=== PATIENT | male | born 1930 | race Caucasian/White ===

== ENCOUNTER 2018-11-06 10:57 | Inpatient (IN) | payer MEDICARE ==
[~2018-11-06] VITALS: Ht 182.9 cm; Wt 85.3 kg
[~2018-11-06 10:57] MED LIST: ACET325T21 PO; ASPI-630 PO; CIPR250T30 PO; CITA10TA8 PO; FLUD0.1T PO; GUAI-66 PO; INSU100V13 SQ; INSU200I SQ; LACT1CAP19 PO; LIDO113G2 TP; LOPE2CAP PO; MAGN296S9 PO; METF10007 PO; RANI150C PO; SENN-161 PO; SILV20CR14 TP; TAMS0.4C97 PO; TRAM50TA PO
[2018-11-06] MEDS ORDERED: IV NORMAL SALINE 1000ML BAG 1,000 ML IV SCH ×2 (11:08→13:15)
[2018-11-06] MEDS ORDERED: IV NORMAL SALINE 1000ML BAG 1,000 ML IV ONE ×2 (11:15→13:00)
[2018-11-06] MEDS ORDERED: IPRATRPIUM/ALBUTEROL 0.5/2.5MG 3 ML NEBU. NEB ONE (11:15)
[2018-11-06 11:23] LABS: BASE EXCESS ABG -5 mmol/L (-3-3); HCO3 ABG 17 mmol/L (21-28); PCO2 ABG 23 mmHg (35-46); PO2 ABG 74 mmHg (65-108); SAT O2 ABG 95 % (92-99)
[2018-11-06 11:26] LABS: BASO % 0 % (0-3); EOS % 0 % (0-3); HEMATOCRIT 35.9 % (39.0-53.0); LYMPH # 0.5 x10^3/uL (1.0-4.8); LYMPH % 2 % (24-48); MEAN CORPUSCULAR HEMOGLOBIN 35 pg (25-35); MEAN CORPUSCULAR HGB CONC 33 g/dL (31-37); MEAN CORPUSCULAR VOLUME 105 fL (79-100); MONO # 0.3 x10^3/uL (0.0-1.1); MONO % 1 % (0-9); NEUT # 30.5 x10^3/uL (1.8-7.7); NEUT % 97 % (31-73); PLATELET COUNT 185 x10^3/uL (140-400); RED BLOOD COUNT 3.42 x10^6/uL (4.30-5.70); RED CELL DISTRIBUTION WIDTH 15.3 % (11.5-14.5); WHITE BLOOD COUNT 31.4 x10^3/uL (4.0-11.0)
--- NOTE | 2018-11-06 11:28 | EKG ---
[facility] [address] [place] [address] Test Date: 2018-11-06 Test Time: 11:01:24 Pat Name: GONZALES SUGGS Department: Room: Gender: M Director Of [employer]: : 1930 Requested By: EDEL ANGUOL Order Number: [id number] Reading MD: Measurements Intervals [place] Rate: 130 P: -116 ND: 126 QRS: 113 QRSD: 124 T: 22 QT: 306 QTc: 456 Interpretive Statements SINUS TACHYCARDIA INDETERMINATE AXIS LOW LIMB LEAD VOLTAGE RIGHT BUNDLE BRANCH BLOCK RVH WITH REPOLARIZATION ABNORMALITY ABNORMAL ECG No previous ECG available for comparison
[2018-11-06 11:29] LABS: FIO2 ABG 36
[2018-11-06 11:39] LABS: PROTHROMBIN TIME PATIENT 13.3 SEC (11.7-14.0)
[2018-11-06 11:41] LABS: CALCIUM 10.1 mg/dL (8.5-10.1); CREATININE 3.7 mg/dL (0.7-1.3); GFR 15.7
[2018-11-06 11:54] LABS: ALBUMIN 2.5 g/dL (3.4-5.0); ALBUMIN/GLOBULIN RATIO 0.6 (1.0-1.7); MAGNESIUM 1.7 mg/dL (1.8-2.4); TOTAL BILIRUBIN 0.6 mg/dL (0.2-1.0); TOTAL PROTEIN 6.6 g/dL (6.4-8.2)
--- NOTE | 2018-11-06 11:54 | RAD ---
Indication:Sepsis. TECHNIQUE:Portable AP chest X-ray COMPARISON: None FINDINGS: Patient is slightly rotated to the right side. Heart is normal in size. Diffuse bilateral interstitial opacities are seen. No focal consolidation. No pneumothorax or pleural effusion. Visualized bony thorax within normal limits. IMPRESSION: Mild bilateral interstitial opacities, nonspecific may be secondary to interstitial pulmonary edema, atypical/viral infection or chronic changes. Electronically signed by: Abelino Whitehead DO (11/06/2018 11:52 AM) [facility]
[2018-11-06] MEDS ORDERED: ACETAMINOPHEN 650 MG SUPP.RECT. PR ONE (12:30)
[2018-11-06] MEDS ORDERED: VANCOMYCIN 1GM IVPB FOR OMNI 250 ML IV ONE (12:30)
[2018-11-06] MEDS ORDERED: PIPERACILLIN/TAZOBACTAM 3.375 GM in IV NORMAL SALINE 50ML 50 ML IV ONE (12:30)
--- NOTE | 2018-11-06 12:33 | PHYS DOC ---
Past Medical History Past Medical History: Anemia, Depression, Hypotension, Other Additional Past Medical Histor: Alzheimers; sepsis Past Surgical History: Other Additional Past Surgical Histo: unknown Alcohol Use: None Drug Use: None Adult General Chief Complaint Chief Complaint: ALTERED MENTAL STATUS HPI HPI Patient is a 88 year old male resident of residential who presents EMS with unresponsiveness. Patient found unresponsive around 10 AM with low blood pressure and fever. Staff reported that he was eating a cookie at 7 AM. Patient had recent hospitalization for end september for abscess of thoracic wall and discharged to residential October 24. Patient is not able to give history. EMS reported the patient had blood pressure of 80s and O2 sat of 80 at room air that improved with starting oxygen and IV fluid. Review of Systems Review of Systems Unable to obtain Current Medications Current Medications Current Medications Medications (Trade) Dose Ordered Sig/Pop Start Time Stop Time Status Last Admin Dose Admin Albuterol/ Ipratropium (Duoneb) 3 ml 1X ONCE 11/06/18 11:15 11/06/18 11:16 DC 11/06/18 11:32 3 ML Sodium Chloride 1,000 ml @ 1,000 mls/hr 1X ONCE 11/06/18 11:15 11/06/18 12:14 DC 11/06/18 11:55 1,000 MLS/HR Allergies Allergies Allergies Coded Allergies Type Severity Reaction Last Updated Verified No Known Drug Allergies 10/17/18 No Physical Exam Physical Exam Constitutional: Unresponsive, breathing with open mouth HENT: Normocephalic, atraumatic. Eyes: Does not open his eyes Neck: Atraumatic Cardiovascular: Sinus tachycardia, no murmur [] Lungs & Thorax: Tachypnea with bilateral coarse breath sounds Abdomen: distended bladder Extremities: Does not move all of the extremities Neurologic: Unresponsive Psychologic: Unable to evaluate Current Patient Data Vital Signs Vital Signs Date Time Temp Pulse Resp B/P (MAP) Pulse Ox O2 Delivery O2 Flow Rate FiO2 11/06/18 11:40 98 Nasal Cannula 4.0 11/06/18 10:57 101.7 130 30 90/45 (60) 101.7 Lab Values Laboratory Tests Test 11/06/18 11:15 11/06/18 11:20 White Blood Count 31.4 x10^3/uL (4.0-11.0) H Red Blood Count 3.42 x10^6/uL (4.30-5.70) L Hemoglobin 12.0 g/dL (13.0-17.5) L Hematocrit 35.9 % (39.0-53.0) L Mean Corpuscular Volume 105 fL (79-100) H Mean Corpuscular Hemoglobin 35 pg (25-35) Mean Corpuscular Hemoglobin Concent 33 g/dL (31-37) Red Cell Distribution Width 15.3 % (11.5-14.5) H Platelet Count 185 x10^3/uL (140-400) Neutrophils (%) (Auto) 97 % (31-73) H Lymphocytes (%) (Auto) 2 % (24-48) L Monocytes (%) (Auto) 1 % (0-9) Eosinophils (%) (Auto) 0 % (0-3) Basophils (%) (Auto) 0 % (0-3) Neutrophils # (Auto) 30.5 x10^3/uL (1.8-7.7) H Lymphocytes # (Auto) 0.5 x10^3/uL (1.0-4.8) L Monocytes # (Auto) 0.3 x10^3/uL (0.0-1.1) Eosinophils # (Auto) 0.0 x10^3/uL (0.0-0.7) Basophils # (Auto) 0.0 x10^3/uL (0.0-0.2) Platelet Estimate Pending Prothrombin Time 13.3 SEC (11.7-14.0) Prothrombin Time INR 1.0 (0.8-1.1) Sodium Level 141 mmol/L (136-145) Potassium Level 5.0 mmol/L (3.5-5.1) Chloride Level 104 mmol/L (98-107) Carbon Dioxide Level 22 mmol/L (21-32) Anion Gap 15 (6-14) H Blood Urea Nitrogen 62 mg/dL (8-26) H Creatinine 3.7 mg/dL (0.7-1.3) H Estimated GFR (Cockcroft-Gault) 15.7 BUN/Creatinine Ratio 17 (6-20) Glucose Level 136 mg/dL (70-99) H Lactic Acid Level 7.6 mmol/L (0.4-2.0) *H Calcium Level 10.1 mg/dL (8.5-10.1) Magnesium Level 1.7 mg/dL (1.8-2.4) L Total Bilirubin 0.6 mg/dL (0.2-1.0) Aspartate Amino Transferase (AST) 19 U/L (15-37) Alanine Aminotransferase (ALT) 11 U/L (16-63) L Alkaline Phosphatase 93 U/L (46-116) Creatine Kinase 143 U/L (39-308) Troponin I Quantitative 0.084 ng/mL (0.000-0.055) UD-Ien-M-Type Natriuretic Peptide 8614 pg/mL (0-449) H Total Protein 6.6 g/dL (6.4-8.2) Albumin 2.5 g/dL (3.4-5.0) L Albumin/Globulin Ratio 0.6 (1.0-1.7) L Lipase 58 U/L (73-393) L O2 Saturation 95 % (92-99) Arterial Blood pH 7.48 (7.35-7.45) H Arterial Blood pCO2 at Patient Temp 23 mmHg (35-46) L Arterial Blood pO2 at Patient Temp 74 mmHg (65-108) Arterial Blood HCO3 17 mmol/L (21-28) L Arterial Blood Base Excess -5 mmol/L (-3-3) L FiO2 36 Laboratory Tests 11/06/18 11:15 Laboratory Tests 11/06/18 11:15 EKG EKG EKG interpreted by me. EKG at 1101 showed sinus tachycardia at rate of 134, low- voltage QRS, right bundle branch block, no acute ST and T-wave elevation. Radiology/Procedures Radiology/Procedures [][facility] [address] [place] [address] IMAGING REPORT Signed PATIENT: GONZALES SUGGS ACCOUNT: [id number] : 1930 LOCATION: ER AGE: 88 SEX: M EXAM STATUS: REG ER ORD. PHYSICIAN: EDEL ANGULO MD REASON: sepsis PROCEDURE: PORTABLE CHEST 1V Indication:Sepsis. TECHNIQUE:Portable AP chest X-ray COMPARISON: None FINDINGS: Patient is slightly rotated to the right side. Heart is normal in size. Diffuse bilateral interstitial opacities are seen. No focal consolidation. No pneumothorax or pleural effusion. Visualized bony thorax within normal limits. IMPRESSION: Mild bilateral interstitial opacities, nonspecific may be secondary to interstitial pulmonary edema, atypical/viral infection or chronic changes. Electronically signed by: Abelino Whitehead DO (11/06/2018 11:52 AM) [facility] DICTATED and SIGNED BY: ABELINO WHITEHEAD DO DATE: 11/06/18 1152 Course & Med Decision Making Course & Med Decision Making Pertinent Labs and Imaging studies reviewed. (See chart for details) Evaluation of patient in ER showed 88-year-old male patient resident of assisted living home brought in after recent hospitalization with hypoxia and hypo tension and altered level of consciousness. Patient was unresponsive in ER and treated with 3 L of IV fluid and antibiotic with improvement of blood pressure more than 100 and increase of O2 sat to 95%. Patient had a big bowel movement and blood pressure dropped to 88 again. Condition was discussed with family members and they requesting DNR. Patient requiring admission for further evaluation and treatment. Discussed with Dr. Zamora who is in agreement with admission. Discussed findings and plan with patient and family, who acknowledge understanding and agreement. Hospitalist presented to ER and evaluated the patient. Dragon Disclaimer Dragon Disclaimer This electronic medical record was generated, in whole or in part, using a voice recognition dictation system. Departure Departure Impression: Primary Impression: Sepsis Additional Impressions: Altered level of consciousness HCAP (healthcare-associated pneumonia) Disposition: ADMITTED INPATIENT Admitting Physician: ADELE Condition: GUARDED Referrals: MATTHEW RIVAS MD (PCP) Critical Care Time Critical care time was 70 minutes exclusive of procedures. Date and Time of Reassessment Date: Nov 06, 2018 Time: 13:00 Fluid Challenge Is the fluid challenge complet: Yes IBW Target Volume Used: Yes BMI > 30: No Vital Signs Vital Signs: Vital Signs Date Time Temp Pulse Resp B/P (MAP) Pulse Ox O2 Delivery O2 Flow Rate FiO2 11/06/18 11:40 98 Nasal Cannula 4.0 11/06/18 10:57 101.7 130 30 90/45 (60) 101.7 Temperature Source: Oral Cardiovascular Pulse Rhythm: Regular Heart: S1 and S2 normal Capillary Refil Capillary Refill: Rt Hand > 3 seconds Peripheral Pulse Pulse Location: Monitor Pulse Strength: Weak (1+) Pulse Assessment Method: NIBP Problem Qualifiers EDEL ANGULO MD Nov 06, 2018 12:33
[2018-11-06] MEDS: MAGNESIUM OXIDE 400 MG TABLET PO SCH (13:00)
[2018-11-06 13:06] LABS: BILIRUBIN,URINE NEGATIVE (NEG); CLARITY,URINE CLOUDY; COLOR,URINE YELLOW; NITRITE,URINE NEGATIVE (NEG); PH,URINE 7.5; PROTEIN,URINE 30 mg/dL (NEG-TRACE); UROBILINOGEN,URINE 0.2 mg/dL (0.2 mg/dL)
[2018-11-06 13:19] LABS: BACTERIA,URINE MANY /HPF (0-FEW); WBC,URINE >40 /HPF (0-4)
[2018-11-06] MEDS ORDERED: SCOPOLAMINE 1.5MG PATCH. TD SCH (14:00)
--- NOTE | 2018-11-06 14:28 | HP ---
ADMIT DATE: 11/06/2018 CHIEF COMPLAINT: Mental status change. HISTORY OF PRESENT ILLNESS: The patient is a pleasant 88-year-old retired gentleman. He used to work in [employer]. Basically, he resides at the [facility] where they do assisted care. He was found unresponsive. The sons who are here with him states he has been declining for some time. He does have Alzheimer's and when they talked to him a couple of days ago, he was somewhat confused. The ambulance brought him to the ER, we have noticed that he has got severe leukocytosis of 31,000. He is azotemic with a BUN of 62. He is in renal failure with creatinine of 3.7. He has a UTI. He is hypotensive, hypoxic. He is extremely dehydrated and the family are here requesting comfort care only. It should be noted that he has already received 3 liters of fluids and some IV antibiotics, but we are going to back off on that at family request. I told the nurse to go ahead and put him on a scopolamine patch on him and give him some p.r.n. morphine. PAST MEDICAL HISTORY: Alzheimer's, anemia, hypotension, previous sepsis, recent thoracic abscess. ALLERGIES: None. FAMILY HISTORY: Diabetes. SOCIAL HISTORY: Does not drink, smoke or take drugs. MEDICATIONS: Reviewed, please refer to the MRAD. REVIEW OF SYSTEMS: Unable to obtain. PHYSICAL EXAMINATION: VITALS: Within normal limits and are stable. GENERAL: No apparent distress. Alert and oriented. HEENT: The oral mucosa is extremely dry. He has got some blood in his mouth. NECK: Supple, no JVD, no thyromegaly was noted. LUNGS: Coarse. HEART: Heart tones are distant, but tachycardic. ABDOMEN: Soft, nontender. Positive bowel sounds no organomegaly, normal bowel sounds. EXTREMITIES: Without any cyanosis, clubbing, or edema. Pedal pulses intact, Homans sign is negative. NEUROLOGIC: Pupils are pinpoint and slightly reactive.. PSYCHIATRIC: Normal affect, normal mood. Stable. SKIN: Very pale and cool. VASCULAR: Good capillary refill, neurovascular bundle appears to be intact. LABORATORY DATA: White count 31,000. He has a UTI with leukocyte esterase. BUN and creatinine are 62 and 3.7. ASSESSMENT AND PLAN: Multiorgan failure and respiratory failure, UTI, sepsis, leukocytosis, azotemia, renal failure and lactic acidosis. Per family request, they want comfort care only. They would like to have morphine and scopolamine patch. We will move him to the medical floor for comfort care only. NAYAN DISLA DO DR: HAN/luis miguel JOB#: [id number] / [id number]
[2018-11-06 14:49] LABS: % LYMPHS 1 % (24-48); % MONOS 2 % (0-10); % SEGS 97 % (35-66); PLT ESTIMATE ADEQUATE (ADEQUATE)
[2018-11-06] MEDS: MORPHINE SULFATE 2 MG/ML VIAL. IV PRN ×3 (14:52→21:35)
[2018-11-06] MEDS ORDERED: ATROPINE 1% OPHTH SOLUTION 5ML BOTTLE. SL PRN (17:45)
[2018-11-06] MEDS ORDERED: GLYCOPYRROLATE 1 MG/5 ML VIAL. IV PRN (17:45)
[2018-11-06 19:00] VITALS: BP 115/63
--- NOTE | 2018-11-06 19:28 | PDOC2 ---
PALLIATIVE CARE Palliative Care Note Palliative Care Consult requested by Dr. Templeton to address plan of care and symptom management. Medical Assessment per medical record; ASSESSMENT AND PLAN: Multiorgan failure and respiratory failure, UTI, sepsis, leukocytosis, azotemia, renal failure and lactic acidosis. Per family request, they want comfort care only. They would like to have morphine and scopolamine patch. We will move him to the medical floor for comfort care only. (Dr. Zamora) Spoke with family; DPOA sons; Maury and his Amanda; [place]; son Praveen unable to be here. Reviewed above medical condition. Decision has been made to focus on comfort. Confirmed DNR/DNI. Patient unresponsive to verbal stimuli. Extremities cool. No Mottling. 89/28 JR 100 RR 28-30 Wet respiratory sounds. Robinul given as ordered. Morphine 2mg x2. Patient appears comfortable. Patient has received the Sacrament of the Sick. He is a member of the [employer] in [place]. 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 Family noticed patient has been declining. Had been with [facility] before being hospitalized recently for removal of cyst on his back. Plan: Comfort Care Monitor closely for symptoms No Labs No x-rays. No antibiotics. YANELY HARMON Nov 06, 2018 19:27
[2018-11-06 23:00] VITALS: BP 115/64
[2018-11-07 03:00] VITALS: BP 125/67
[2018-11-07 07:00] VITALS: BP 134/64
[2018-11-07] MEDS: MAGNESIUM OXIDE 400 MG TABLET PO SCH (08:15)
[2018-11-07] MEDS ORDERED: SCOP1PAT11 TD (08:25)
[2018-11-07] MEDS ORDERED: ATRO2DRO3 SL (08:25)
[2018-11-07] MEDS ORDERED: MORP100S3 SL (08:25)
[2018-11-07] MEDS ORDERED: LORA2ORA7 SL (08:25)
--- NOTE | 2018-11-07 08:27 | SNU/HH DC ---
DISCHARGE ORDERS DISCHARGE INFORMATION: DISCHARGE DATE: Nov 07, 2018 FINAL DIAGNOSIS Problems Medical Problems: (1) Altered level of consciousness Status: Acute (2) HCAP (healthcare-associated pneumonia) Status: Acute (3) Multiple organ failure Status: Acute (4) Sepsis Status: Acute (5) UTI (urinary tract infection) Status: Acute CONDITION ON DISCHARGE: Stable CODE STATUS: Code Status: DNR/DNI HALF-WAY: SNF STAY <30 DAYS: No HOSPICE: HOSPICE: Yes HOSPICE EVAL & TREAT: Yes LTAC: ADMIT TO LTAC: No POST DISCHARGE ORDERS: ACTIVITY ORDERS: Bedrest today DIET AFTER DISCHARGE: NPO FOLLOW-UP: PHYSICIAN FOLLOW-UP: [facility] comfort care only DISCHARGE MEDICATIONS: Home Meds Active Scripts Scopolamine (TRANSDERM-SCOP) 1 Each Patch.td72, 1 PATCH TD Q3DAYS for secretions, #10 PATCH Prov:RENEE MONTESINOS MD 11/07/18 Atropine Sulfate (Atropine Sulfate) 2 Ml Drops, 1 DROP SL PRN Q2HR PRN for SECRETIONS, #30 DROP Prov:RENEE MONTESINOS MD 11/07/18 Lorazepam (LORAZEPAM INTENSOL) 2 Mg/1 Ml Oral.conc, 2 MG SL PRN Q6HRS PRN for ANXIETY / AGITATION, #30 MISC Prov:RENEE MONTESINOS MD 11/07/18 Morphine Sulfate (MORPHINE SULFATE) 100 Mg/5 Ml Solution, 20 MG SL PRN Q3HRS PRN for PAIN, #30 MISC Prov:RENEE MONTESINOS MD 11/07/18 Discontinued Reported Medications Tramadol Hcl (TRAMADOL HCL) 50 Mg Tablet, 50 MG PO PRN Q8HRS PRN for PAIN, TAB 10/17/18 Lidocaine (TOPICAINE) 113 Gm Gel..gram., 113 GM TP PRN Q4HRS PRN for PAIN, EACH 10/17/18 Silver Sulfadiazine (SILVADENE) 20 Gm Cream..g., 1 UCHE TP BID for WOUND ABSCESS, #50 GM 10/17/18 Sennosides/Docusate Sodium (SENNA-DOCUSATE SODIUM TABLET) 1 Each Tablet, 1 EACH PO PRN Q24HRS PRN for CONSTIPATION, TAB 10/17/18 Ranitidine Hcl (RANITIDINE HCL) 150 Mg Capsule, 150 MG PO DAILY for GERD, TAB 10/17/18 Metformin Hcl (METFORMIN HCL) 1,000 Mg Tablet, 1000 MG PO DAILYWBKFT for ANTI- DIABETIC, TAB 0 Refills 10/17/18 Magnesium Citrate (MAGNESIUM CITRATE) 296 Ml Solution, 296 ML PO PRN DAILY PRN for CONSTIPATION, MISC 10/17/18 Loperamide Hcl (LOPERAMIDE) 2 Mg Capsule, 2 MG PO PRN Q8HRS PRN for DIARRHEA, CAP 10/17/18 Insulin Detemir (LEVEMIR) 100 Unit/1 Ml Vial, 20 UNIT SQ HS for DIABETES, VIAL 10/17/18 Insulin Lispro (Humalog Kwikpen) 200 Unit/1 Ml Insuln.pen, 15 UNIT SQ PRN BFRMEAL PRN for DIABETES, EACH 10/17/18 Guaifenesin (KANCHAN-TUSSIN) 100 Mg/5 Ml Liquid, 200 MG PO PRN Q6HRS PRN for COUGH, LIQUID 10/17/18 Fludrocortisone Acetate (FLUDROCORTISONE ACETATE) 0.1 Mg Tablet, 0.1 MG PO DAILY for REPLACEMENT THERAPY, TAB 10/17/18 Tamsulosin Hcl (FLOMAX) 0.4 Mg Cap.er.24h, 0.4 MG PO HS for BPH, TAB 10/17/18 Citalopram Hydrobromide (CELEXA) 10 Mg Tablet, 5 MG PO DAILY for BPH, TAB 10/17/18 Aspirin (ASPIRIN) 81 Mg Tab.chew, 1 TAB PO DAILY for HEART HEALTH, #30 TAB 3 Refills 10/17/18 Acetaminophen (ACETAMINOPHEN) 325 Mg Tablet, 650 MG PO PRN Q6HRS PRN for PAIN, TAB 10/17/18 Discontinued Scripts Lactobacillus Rhamnosus Gg (CULTURELLE) 1 Each Cap.sprink, 1 CAP PO BID for Diarrhea for 7 Days, #14 CAP Prov:JEANNE HENDERSON MD 10/23/18 Ciprofloxacin Hcl (CIPRO) 250 Mg Tablet, 500 MG PO BID for Abscess for 7 Days, #28 TAB Prov:JEANNE HENDERSON MD 10/23/18 RENEE MONTESINOS MD Nov 07, 2018 08:27
[2018-11-07] MEDS ORDERED: LORazepam INTENSOL 2 MG/ML ORAL.CONC SL PRN (08:30)
--- NOTE | 2018-11-07 10:23 | PDOC3 ---
Discharge Summary Visit Information Date of Admission: Nov 06, 2018 Date of Discharge: Nov 07, 2018 Admitting Diagnosis Comment: Multiorgan failure and respiratory failure, UTI, sepsis, leukocytosis, azotemia, renal failure and lactic acidosis. Per family request, they want comfort care onl Final Diagnosis Problems Medical Problems: (1) Altered level of consciousness Status: Acute (2) HCAP (healthcare-associated pneumonia) Status: Acute (3) Multiple organ failure Status: Acute (4) Sepsis Status: Acute (5) UTI (urinary tract infection) Status: Acute Brief Hospital Course Allergies Allergies Coded Allergies Type Severity Reaction Last Updated Verified No Known Drug Allergies 10/17/18 No Vital Signs Vital Signs Date Time Temp Pulse Resp B/P (MAP) Pulse Ox O2 Delivery O2 Flow Rate FiO2 11/07/18 07:45 Nasal Cannula 3.0 11/07/18 07:00 98.0 104 22 134/64 (87) 96 98.0 Lab Results Laboratory Tests Test 11/06/18 11:15 11/06/18 11:20 11/06/18 12:50 White Blood Count 31.4 x10^3/uL (4.0-11.0) Red Blood Count 3.42 x10^6/uL (4.30-5.70) Hemoglobin 12.0 g/dL (13.0-17.5) Hematocrit 35.9 % (39.0-53.0) Mean Corpuscular Volume 105 fL (79-100) Mean Corpuscular Hemoglobin 35 pg (25-35) Mean Corpuscular Hemoglobin Concent 33 g/dL (31-37) Red Cell Distribution Width 15.3 % (11.5-14.5) Platelet Count 185 x10^3/uL (140-400) Neutrophils (%) (Auto) 97 % (31-73) Lymphocytes (%) (Auto) 2 % (24-48) Monocytes (%) (Auto) 1 % (0-9) Eosinophils (%) (Auto) 0 % (0-3) Basophils (%) (Auto) 0 % (0-3) Neutrophils # (Auto) 30.5 x10^3/uL (1.8-7.7) Lymphocytes # (Auto) 0.5 x10^3/uL (1.0-4.8) Monocytes # (Auto) 0.3 x10^3/uL (0.0-1.1) Eosinophils # (Auto) 0.0 x10^3/uL (0.0-0.7) Basophils # (Auto) 0.0 x10^3/uL (0.0-0.2) Segmented Neutrophils % 97 % (35-66) Lymphocytes % 1 % (24-48) Monocytes % 2 % (0-10) Platelet Estimate Adequate (ADEQUATE) Macrocytosis Slight Prothrombin Time 13.3 SEC (11.7-14.0) Prothromb Time International Ratio 1.0 (0.8-1.1) Sodium Level 141 mmol/L (136-145) Potassium Level 5.0 mmol/L (3.5-5.1) Chloride Level 104 mmol/L (98-107) Carbon Dioxide Level 22 mmol/L (21-32) Anion Gap 15 (6-14) Blood Urea Nitrogen 62 mg/dL (8-26) Creatinine 3.7 mg/dL (0.7-1.3) Estimated GFR (Cockcroft-Gault) 15.7 BUN/Creatinine Ratio 17 (6-20) Glucose Level 136 mg/dL (70-99) Lactic Acid Level 7.6 mmol/L (0.4-2.0) Calcium Level 10.1 mg/dL (8.5-10.1) Magnesium Level 1.7 mg/dL (1.8-2.4) Total Bilirubin 0.6 mg/dL (0.2-1.0) Aspartate Amino Transf (AST/SGOT) 19 U/L (15-37) Alanine Aminotransferase (ALT/SGPT) 11 U/L (16-63) Alkaline Phosphatase 93 U/L (46-116) Creatine Kinase 143 U/L (39-308) Troponin I Quantitative 0.084 ng/mL (0.000-0.055) CQ-Pmt-N-Type Natriuretic Peptide 8614 pg/mL (0-449) Total Protein 6.6 g/dL (6.4-8.2) Albumin 2.5 g/dL (3.4-5.0) Albumin/Globulin Ratio 0.6 (1.0-1.7) Lipase 58 U/L (73-393) O2 Saturation 95 % (92-99) Arterial Blood pH 7.48 (7.35-7.45) Arterial Blood pCO2 at Patient Temp 23 mmHg (35-46) Arterial Blood pO2 at Patient Temp 74 mmHg (65-108) Arterial Blood HCO3 17 mmol/L (21-28) Arterial Blood Base Excess -5 mmol/L (-3-3) FiO2 36 Urine Collection Type Unknown Urine Color Yellow Urine Clarity Cloudy Urine pH 7.5 Urine Specific [place] 1.015 Urine Protein 30 mg/dL (NEG-TRACE) Urine Glucose (UA) Negative mg/dL (NEG) Urine Ketones (Stick) Negative mg/dL (NEG) Urine Blood Moderate (NEG) Urine Nitrite Negative (NEG) Urine Bilirubin Negative (NEG) Urine Urobilinogen Dipstick 0.2 mg/dL (0.2 mg/dL) Urine Leukocyte Esterase Moderate (NEG) Urine RBC 6-10 /HPF (0-2) Urine WBC >40 /HPF (0-4) Urine Bacteria Many /HPF (0-FEW) Laboratory Tests Test 11/06/18 11:15 11/06/18 11:20 11/06/18 12:50 White Blood Count 31.4 x10^3/uL (4.0-11.0) Red Blood Count 3.42 x10^6/uL (4.30-5.70) Hemoglobin 12.0 g/dL (13.0-17.5) Hematocrit 35.9 % (39.0-53.0) Mean Corpuscular Volume 105 fL (79-100) Mean Corpuscular Hemoglobin 35 pg (25-35) Mean Corpuscular Hemoglobin Concent 33 g/dL (31-37) Red Cell Distribution Width 15.3 % (11.5-14.5) Platelet Count 185 x10^3/uL (140-400) Neutrophils (%) (Auto) 97 % (31-73) Lymphocytes (%) (Auto) 2 % (24-48) Monocytes (%) (Auto) 1 % (0-9) Eosinophils (%) (Auto) 0 % (0-3) Basophils (%) (Auto) 0 % (0-3) Neutrophils # (Auto) 30.5 x10^3/uL (1.8-7.7) Lymphocytes # (Auto) 0.5 x10^3/uL (1.0-4.8) Monocytes # (Auto) 0.3 x10^3/uL (0.0-1.1) Eosinophils # (Auto) 0.0 x10^3/uL (0.0-0.7) Basophils # (Auto) 0.0 x10^3/uL (0.0-0.2) Segmented Neutrophils % 97 % (35-66) Lymphocytes % 1 % (24-48) Monocytes % 2 % (0-10) Platelet Estimate Adequate (ADEQUATE) Macrocytosis Slight Prothrombin Time 13.3 SEC (11.7-14.0) Prothromb Time International Ratio 1.0 (0.8-1.1) Sodium Level 141 mmol/L (136-145) Potassium Level 5.0 mmol/L (3.5-5.1) Chloride Level 104 mmol/L (98-107) Carbon Dioxide Level 22 mmol/L (21-32) Anion Gap 15 (6-14) Blood Urea Nitrogen 62 mg/dL (8-26) Creatinine 3.7 mg/dL (0.7-1.3) Estimated GFR (Cockcroft-Gault) 15.7 BUN/Creatinine Ratio 17 (6-20) Glucose Level 136 mg/dL (70-99) Lactic Acid Level 7.6 mmol/L (0.4-2.0) Calcium Level 10.1 mg/dL (8.5-10.1) Magnesium Level 1.7 mg/dL (1.8-2.4) Total Bilirubin 0.6 mg/dL (0.2-1.0) Aspartate Amino Transf (AST/SGOT) 19 U/L (15-37) Alanine Aminotransferase (ALT/SGPT) 11 U/L (16-63) Alkaline Phosphatase 93 U/L (46-116) Creatine Kinase 143 U/L (39-308) Troponin I Quantitative 0.084 ng/mL (0.000-0.055) OZ-Hup-X-Type Natriuretic Peptide 8614 pg/mL (0-449) Total Protein 6.6 g/dL (6.4-8.2) Albumin 2.5 g/dL (3.4-5.0) Albumin/Globulin Ratio 0.6 (1.0-1.7) Lipase 58 U/L (73-393) O2 Saturation 95 % (92-99) Arterial Blood pH 7.48 (7.35-7.45) Arterial Blood pCO2 at Patient Temp 23 mmHg (35-46) Arterial Blood pO2 at Patient Temp 74 mmHg (65-108) Arterial Blood HCO3 17 mmol/L (21-28) Arterial Blood Base Excess -5 mmol/L (-3-3) FiO2 36 Urine Collection Type Unknown Urine Color Yellow Urine Clarity Cloudy Urine pH 7.5 Urine Specific [place] 1.015 Urine Protein 30 mg/dL (NEG-TRACE) Urine Glucose (UA) Negative mg/dL (NEG) Urine Ketones (Stick) Negative mg/dL (NEG) Urine Blood Moderate (NEG) Urine Nitrite Negative (NEG) Urine Bilirubin Negative (NEG) Urine Urobilinogen Dipstick 0.2 mg/dL (0.2 mg/dL) Urine Leukocyte Esterase Moderate (NEG) Urine RBC 6-10 /HPF (0-2) Urine WBC >40 /HPF (0-4) Urine Bacteria Many /HPF (0-FEW) Brief Hospital Course Mr. Blandon is a 88 old from [place], brought in bec of altered MS, HE has a lot of co morbids, admitted by a colleague, Family wanted hospice and comfort care,was prev hospice? We will resume hospice, he is non verbal, not rousing, Hospice house candidate actually jesús RN at bedside Discharge Information Condition at Discharge: Comment (hospice) Scheduled Scopolamine (Transderm-Scop) 1 Each Patch.td72, 1 PATCH TD Q3DAYS for secret ions, #10 Prescribed by: RENEE MONTESINOS on 11/07/18 0825 Scheduled PRN Atropine Sulfate (Atropine Sulfate) 2 Ml Drops, 1 DROP SL PRN Q2HR PRN for SECRETIONS, #30 Prescribed by: RENEE MONTESINOS on 11/07/1825 Lorazepam (Lorazepam Intensol) 2 Mg/1 Ml Oral.conc, 2 MG SL PRN Q6HRS PRN for ANXIETY / AGITATION, #30 Prescribed by: RENEE MONTESINOS on 11/07/18 08 Morphine Sulfate (Morphine Sulfate) 100 Mg/5 Ml Solution, 20 MG SL PRN Q3HRS PRN for PAIN, #30 Prescribed by: RENEE MONTESINOS on 11/07/18 08 Discontinued Medications Acetaminophen (Acetaminophen) 325 Mg Tablet, 650 MG PO PRN Q6HRS PRN for PAIN, (Reported) Entered as Reported by: MIKKI LOPEZ RN on 10/17/182203 Aspirin (Aspirin) 81 Mg Tab.chew, 1 TAB PO DAILY for HEART HEALTH, #30 Ref 3 (Reported) Entered as Reported by: MIKKI LOPEZ RN on 10/17/182203 Ciprofloxacin Hcl (Cipro) 250 Mg Tablet, 500 MG PO BID for Abscess for 7 Days, #28 Prescribed by: JEANNE HENDERSON MD on 10/23/18 1336 Citalopram Hydrobromide (Celexa) 10 Mg Tablet, 5 MG PO DAILY for BPH, (Reported) Entered as Reported by: MIKKI LOPEZ RN on 10/17/182203 Fludrocortisone Acetate (Fludrocortisone Acetate) 0.1 Mg Tablet, 0.1 MG PO DAILY for REPLACEMENT THERAPY, (Reported) Entered as Reported by: MIKKI LOPEZ RN on 10/17/182203 Guaifenesin (Jyoti-Tussin) 100 Mg/5 Ml Liquid, 200 MG PO PRN Q6HRS PRN for COUGH, (Reported) Entered as Reported by: MIKKI LOPEZ RN on 10/17/182203 Insulin Detemir (Levemir) 100 Unit/1 Ml Vial, 20 UNIT SQ HS for DIABETES, (Reported) Entered as Reported by: MIKKI LOPEZ RN on 10/17/182203 Insulin Lispro (Humalog Kwikpen) 200 Unit/1 Ml Insuln.pen, 15 UNIT SQ PRN BF RMEAL PRN for DIABETES, (Reported) Entered as Reported by: MIKKI LOPEZ RN on 10/17/182203 Lactobacillus Rhamnosus Gg (Culturelle) 1 Each Cap.sprink, 1 CAP PO BID for Diarrhea for 7 Days, #14 Prescribed by: JEANNE HENDERSON MD on 10/23/18 1336 Lidocaine (Topicaine) 113 Gm Gel..gram., 113 GM TP PRN Q4HRS PRN for PAIN, (Reported) Entered as Reported by: MIKKI LOPEZ RN on 10/17/182203 Loperamide Hcl (Loperamide) 2 Mg Capsule, 2 MG PO PRN Q8HRS PRN for DIARRHEA, (Reported) Entered as Reported by: MIKKI LOPEZ RN on 10/17/182203 Magnesium Citrate (Magnesium Citrate) 296 Ml Solution, 296 ML PO PRN DAILY PRN for CONSTIPATION, (Reported) Entered as Reported by: MIKKI LOPEZ RN on 10/17/182203 Metformin Hcl (Metformin Hcl) 1,000 Mg Tablet, 1,000 MG PO DAILYWBKFT for ANTI- DIABETIC, Ref 0 (Reported) Entered as Reported by: MIKKI LOPEZ RN on 10/17/182203 Ranitidine Hcl (Ranitidine Hcl) 150 Mg Capsule, 150 MG PO DAILY for GERD, (Reported) Entered as Reported by: MIKKI LOPEZ RN on 10/17/182203 Sennosides/Docusate Sodium (Senna-Docusate Sodium Tablet) 1 Each Tablet, 1 EACH PO PRN Q24HRS PRN for CONSTIPATION, (Reported) Entered as Reported by: MIKKI LOPEZ RN on 10/17/182203 Silver Sulfadiazine (Silvadene) 20 Gm Cream..g., 1 UCHE TP BID for WOUND ABSCESS, #50 (Reported) Entered as Reported by: MIKKI LOPEZ RN on 10/17/182203 Tamsulosin Hcl (Flomax) 0.4 Mg Cap.er.24h, 0.4 MG PO HS for BPH, (Reported) Entered as Reported by: MIKKI LOPEZ RN on 10/17/182203 Tramadol Hcl (Tramadol Hcl) 50 Mg Tablet, 50 MG PO PRN Q8HRS PRN for PAIN, (Reported) Entered as Reported by: MIKKI LOPEZ RN on 10/17/182203 RENEE MONTESINOS MD Nov 07, 2018 10:23
[2018-11-07 10:39] VITALS: BP 144/65
[2018-11-07] MEDS: MORPHINE SULFATE 20 MG/ML CONC SOLUTION. SL PRN ×2 (12:30→17:03)
--- NOTE | 2018-11-07 14:17 | PDOC2 ---
PALLIATIVE CARE Palliative Care Note Palliative Care Patient resting without signs of discomfort--no restlessness/furrowed brow. Secretions controlled with meds as ordered. Spoke with mary Mendiola and [place]. Reviewed discharge plan. Family would like to keep patient here. Spoke with Gem TORRES. Patient has no acute care needs/IP Hospice needs. Reviewed with kim Mendiola. Plan to transfer back to [facility] with [facility] when discharged. Will give Roxanol as ordered/ YANELY HARMON Nov 07, 2018 14:17
[2018-11-07 15:00] VITALS: BP 119/65
--- NOTE | 2018-11-07 16:28 | NUR ---
CAMMIE consulted for hospice. CAMMIE phoned and faxed orders to [facility] and [facility] hospice. A nurse from [facility] will meet with the family at the [facility]. CAMMIE has arranged transport at 1700 via [employer]. Packet on chart and pt's family notified. Discussed with Lucila TORRES at The [facility].
--- NOTE | 2018-11-07 17:10 | NUR ---
Discharge Note: GONZALES SUGGS Discharge instructions and discharge home medications reviewed with Other facility and a copy given. All questions have been answered and understanding verbalized. The following instructions and handouts were given: discharge instructions, new prescriptions. Discontinued lines and drains: Peripheral IV discontinued intact. Patient discharged to the [facility] with Hospice with Ambulance Personnel via [facility]
== END 2018-11-07 17:38 | disposition hospice, inpatient (51) | DRG 871 ==
LOC: ER 10:57 → 6 SOUTH 12:00 → 5 SOUTH 15:36
PROVIDERS: ADMIT Internal Medicine; ATTEND Internal Medicine
DX: A41.9 Sepsis, unspecified organism (principal); J18.9 Pneumonia, unspecified organism; J96.91 Respiratory failure, unspecified with hypoxia; E87.2 Acidosis; N39.0 Urinary tract infection, site not specified; Z51.5 Encounter for palliative care; F32.9 Major depressive disorder, single episode, unspecified; G30.9 Alzheimer's disease, unspecified; E11.9 Type 2 diabetes mellitus without complications; N40.0 Benign prostatic hyperplasia without lower urinary tract symptoms; E86.0 Dehydration; Y95 Nosocomial condition; N19 Unspecified kidney failure; Z66 Do not resuscitate; F02.80 Dementia in other diseases classified elsewhere, unspecified severity, without behavioral disturbance, psychotic disturbance, mood disturbance, and anxiety; Z83.3 Family history of diabetes mellitus; Z79.899 Other long term (current) drug therapy; Z79.82 Long term (current) use of aspirin; Z79.4 Long term (current) use of insulin
CPT/HCPCS: 36415; 71045; 80053; 81001; 82550; 82805; 83605; 83690; 83735; 83880; 84484; 85007; 85025; 85610; 87040; 87086; 87205; 93005; 96361; 96365; 96366; J1956; J2270; J2543; J3370; J3490; J7030; J7620; 99291-25; G0378